=== PATIENT | female | born 1995 | race Caucasian/White ===

== ENCOUNTER 2017-10-08 20:08 | Emergency (ER) | payer BC ==
[~2017-10-08] VITALS: Ht 172.7 cm; Wt 68.0 kg
[~2017-10-08 20:08] MED LIST: ABIL5TAB6 PO
[2017-10-08 20:13] VITALS: BP 103/55; PULSE 82; RESP 16; TEMP 99; O2SAT 98
[2017-10-08] MEDS ORDERED: AZITHROMYCIN 250 MG TAB PO ONE (23:00)
[2017-10-08] MEDS ORDERED: cefTRIAXone 250 MG VIAL IM ONE (23:00)
--- NOTE | 2017-10-08 23:12 | PD ---
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 She said she is having a discharge she says she is worried that she has had a sexually transmitted disease from her partner. He had cultures done and he was positive for GC or chlamydia. She reports she is early is very worried. She reports dischrge no pain no bleeding , no contraction like pain PFSH Past Medical History Immunizations Current: Yes Tetanus Vaccination: Unknown Influenza Vaccination: No ?: Social History Alcohol Use: No Tobacco Use: Yes Substance Use: No Allergies-Medications (Allergen,Severity, Reaction): Coded Allergies: metoclopramide (Verified Allergy, Severe, Anaphylaxis, 10/10/17) lamotrigine (Unverified Allergy, Unknown, 03/31/17) Reported Meds & Prescriptions Reported Meds & Active Scripts Active No Active Prescriptions or Reported Medications Reported Abilify (Aripiprazole) 5 Mg Tab 5 Mg PO DAILY Review of Systems Except as stated in HPI: all other systems reviewed are Neg Physical Exam Narrative GENERAL: [id number] in no obvious distress SKIN: Warm and dry. HEAD: Atraumatic. Normocephalic. EYES: Pupils equal and round. No scleral icterus. No injection or drainage. ENT: No nasal bleeding or discharge. Mucous membranes pink and moist. NECK: Trachea midline. No JVD. CARDIOVASCULAR: Regular rate and rhythm. RESPIRATORY: No accessory muscle use. Clear to auscultation. Breath sounds equal bilaterally. GASTROINTESTINAL: Abdomen soft, non-tender, nondistended. Hepatic and splenic margins not palpable. Pelvic exam patient has a white frothy-like discharge from her cervix MUSCULOSKELETAL: Extremities without clubbing, cyanosis, or edema. No obvious deformities. NEUROLOGICAL: Awake and alert. No obvious cranial nerve deficits. Motor grossly within normal limits. Five out of 5 muscle strength in the arms and legs. Normal speech. PSYCHIATRIC: Appropriate mood and affect; insight and judgment normal. Data Data Last Documented VS Vital Signs Date Time Temp Pulse Resp B/P (MAP) Pulse Ox O2 Delivery O2 Flow Rate FiO2 10/08/17 23:15 10/08/17 20:13 99.0 82 16 98 Orders Orders Wet Prep Profile (10/08/17 22:58) Gc And Chlamydia Pcr (10/08/17 22:58) Ceftriaxone Inj (Rocephin Inj) (10/08/17 23:00) Azithromycin (Zithromax) (10/08/17 23:00) Ed Discharge Order (10/08/17 23:18) Labs Laboratory Tests Test 10/08/17 22:50 Clue Cells (Wet Prep) NONE SEEN Vaginal Trichomonas (Wet Prep) NONE SEEN Vaginal Yeast (Wet Prep) NONE SEEN Chlamydia trachomatis DNA (PCR) NOT DETECTED Neisseria gonorrhoeae DNA (PCR) DETECTED MDM Medical Decision Making Medical Screen Exam Complete: Yes Emergency Medical Condition: Yes Differential Diagnosis STD sexually-transmitted cervicitis versus bacterial vaginosis versus Trichomonas versus GC chlamydia Narrative Course Patient is treated empirically with 250 mg of ceftriaxone IM and a gram of azithromycin p.o. and she will be notified of trichomoniasis or BV or GC chlamydia positive by the laboratory Diagnosis Primary Impression: Possible exposure to STD Patient Instructions: General Instructions, Sexually Transmitted Diseases (ED) Alberto Henao MD Oct 08, 2017 23:12
== END 2017-10-08 23:21 | disposition home or self-care (01) ==
LOC: NEPC 20:08 → MERGE 20:08 → NEPC 23:21
DX: Z20.2 Contact with and (suspected) exposure to infections with a predominantly sexual mode of transmission (principal)
CPT/HCPCS: 87210; 87491; 87591; 96372; 99283; J0696

== ENCOUNTER 2018-02-14 05:29 | Inpatient (IN) ==
[2018-02-14] MEDS ORDERED: Sod Chloride 0.9% Inj 1,000 ML IV.SIG ONE (06:37)
--- NOTE | 2018-02-14 06:42 | ED ---
HPI General Chief Complaint: Abdominal Pain Stated Complaint: v/poss pregnacy related Time Seen by Provider: 02/14/18 06:42 History of Present Illness HPI narrative: 22-year-old female patient with previous history of hyperemesis gravidarum, presents to the ER today with nausea and vomiting since 11:00 last night, vomiting multiple times he cannot keep anything down, abdominal pains, and thinks she may be , states that she does not remember when her last menses was. She denies any fevers, diarrhea, or other symptoms. Related Data Home Medications Medication Instructions Recorded Confirmed No Known Home Medications 02/14/18 02/14/18 Allergies Allergy/AdvReac Type Severity Reaction Status Date / Time metoclopramide Allergy Severe Anaphylaxis Verified 10/08/17 06:42 lamotrigine Allergy Unknown Unverified 03/31/17 23:47 Review of Systems ROS Unobtainable All other systems reviewed negative except as stated in HPI [facility] Medical History Medical History Miscarriage (Acute) Social History Social History Substance History: Active Abuse Second Hand Smoke Exposure: Yes Smoking Status: Current every day smoker Tobacco Type: Cigarettes How Often Do You Have a Drink Containing Alcohol: Never Recent Travel in [place] within the Last 8 Weeks: No Recent Out of Country Travel within the Last 8 Weeks: No Substance Abuse Detail Marijuana: Substance Use Status: Active Route Used Substance Abuse: Inhalation Reason for Use: Feels Good Immunization History Tetanus Immunization: Unsure Hx Influenza Vaccine This Season: Unable to Assess Exam Narrative Exam Narrative: GENERAL: Well-developed thin young female patient currently in moderate distress, vomiting in the ER. Awake and oriented 3. SKIN: Focused skin assessment warm/dry. HEAD: Atraumatic. Normocephalic. EYES: Pupils equal and round. No scleral icterus. No injection or drainage. ENT: No nasal bleeding or discharge. Mucous membranes pink and moist. NECK: Trachea midline. No JVD. CARDIOVASCULAR: Regular rate and rhythm. No murmur appreciated. RESPIRATORY: No accessory muscle use. Clear to auscultation. Breath sounds equal bilaterally. GASTROINTESTINAL: Abdomen soft, diffuse abdominal tenderness without guarding or rebound, nondistended. Hepatic and splenic margins not palpable. MUSCULOSKELETAL: No obvious deformities. No clubbing. No cyanosis. No edema. NEUROLOGICAL: Awake and alert. No obvious cranial nerve deficits. Motor grossly within normal limits. Normal speech. PSYCHIATRIC: Appropriate mood and affect; insight and judgment normal. Course Hospital Course: Case is signed out to oncoming physician awaiting lab workup and reevaluation after given IV fluids and nausea medications. Initial Documented Vital Signs Temperature 98.4 F 02/14/18 05:34 Pulse Rate 56 L 02/14/18 05:34 Respiratory Rate 18 02/14/18 05:34 Blood Pressure 128/72 02/14/18 05:34 Pulse Oximetry 100 02/14/18 05:34 Last Documented Vital Signs Temperature 98.4 F 02/14/18 05:38 Pulse Rate 52 L 02/14/18 05:38 Respiratory Rate 20 02/14/18 05:38 Blood Pressure 129/83 02/14/18 05:38 Pulse Oximetry 100 02/14/18 05:38 Medical Decision Making Lab Data Result diagrams: 02/14/18 06:30 02/14/18 06:30 Lab Results 02/14/18 Range/Units 06:30 WBC 12.1 H (4.0-11.0) th/mm3 RBC 4.49 (4.00-5.30) mil/mm3 Hgb 14.1 (11.6-15.3) gm/dL Hct 41.2 (35.0-46.0) % MCV 91.7 (80.0-100.0) fL MCH 31.3 (27.0-34.0) pg MCHC 34.1 (32.0-36.0) % RDW 12.8 (11.6-17.2) % Plt Count 222 (150-450) th/mm3 MPV 8.0 (7.0-11.0) fL Neut % (Auto) 72.9 H (16.0-70.0) % Lymph % (Auto) 21.0 (9.0-44.0) % [place] % (Auto) 5.3 (0.0-8.0) % Eos % (Auto) 0.4 (0.0-4.0) % Baso % (Auto) 0.4 (0.0-2.0) % Neut # (Auto) 8.8 H (1.8-7.7) th/mm3 Lymph # (Auto) 2.5 (1.0-4.8) th/mm3 [place] # (Auto) 0.6 (0.0-0.9) th/mm3 Eos # (Auto) 0.0 (0.0-0.4) th/mm3 Baso # (Auto) 0.0 (0.0-0.2) th/mm3 WBC Differential . Differential Comment Auto diff final Discharge Plan Discharge Disposition Patient Disposition: 30 Still Patient Physicians Team ED Provider: Kenya Mohr Primary Care Provider: Mike Thompson Rxs /Orders / Referrals /Forms Prescriptions: No Action No Known Home Medications RF: 0 Discharge Interventions Interventions: Vital Signs Last Done: 02/14/18 05:38 Status ED Status: With Doctor
[2018-02-14 07:02] LABS: Baso % (Auto) 0.4 % (0.0-2.0); Eos % (Auto) 0.4 % (0.0-4.0); Hematocrit 41.2 % (35.0-46.0); Hemoglobin 14.1 gm/dL (11.6-15.3); Lymph # (Auto) 2.5 th/mm3 (1.0-4.8); Mean Corpuscular HGB Conc 34.1 % (32.0-36.0); Mean Corpuscular Hemoglobin 31.3 pg (27.0-34.0); Mean Corpuscular Volume 91.7 fL (80.0-100.0); Mono # (Auto) 0.6 th/mm3 (0.0-0.9); Mono % (Auto) 5.3 % (0.0-8.0); Neut # (Auto) 8.8 th/mm3 (1.8-7.7); Neut % (Auto) 72.9 % (16.0-70.0); Platelet Count 222 th/mm3 (150-450); Red Blood Count 4.49 mil/mm3 (4.00-5.30); Red Cell Distribution Width 12.8 % (11.6-17.2); White Blood Count 12.1 th/mm3 (4.0-11.0)
[2018-02-14 07:24] LABS: Alanine Aminotransferase 17 U/L (10-53); Albumin 3.9 g/dL (3.4-5.0); Anion Gap 11 meq/L (5-15); Aspartate Aminotransferase 11 U/L (15-37); Blood Urea Nitrogen 9 mg/dL (7-18); Calcium 8.7 mg/dL (8.5-10.1); Carbon Dioxide 22.5 meq/L (21.0-32.0); Chloride 106 meq/L (98-107); Glomerular Filtration Rate Greater Than 89 mL/min (>89); Glucose,Random 100 mg/dL (74-106); Lipase 121 U/L (73-393); Potassium 3.8 meq/L (3.5-5.1); Sodium 139 meq/L (136-145)
[2018-02-14 07:26] LABS: Alkaline Phosphatase 52 U/L (45-117); Total Protein 7.1 g/dL (6.4-8.2)
[2018-02-14 09:31] LABS: Bacteria,Urine Rare /hpf; Bilirubin,Urine Negative (Negative); Clarity,Urine Cloudy (Clear); Color,Urine Yellow (Yellw/Straw); Glucose,Urine (UA) Negative (Negative); Leukocyte Esterase,Urine Negative (Negative); Mucus,Urine Many /lpf (Occasional); Nitrite,Urine Negative (Negative); Specific Gravity,Urine 1.019 (1.002-1.035); Squamous Epithelial Cell,Urine 22 /hpf (0-5)
[2018-02-14] MEDS ORDERED: Sod Chloride 0.9% Inj 2,000 ML IV.SIG ONE (10:31)
[2018-02-14] MEDS ORDERED: Acetaminophen 325 MG Tablet PO PRN (11:14)
[2018-02-14] MEDS ORDERED: Bisacodyl 10 MG Supp RECTAL PRN (11:14)
--- NOTE | 2018-02-14 13:41 | P.HPIM ---
History of Present Illness Primary Care Physician: Mike Thompson MD History of Present Illness: 22-year-old female came to the emergency room with history of vomiting. Patient says that the vomiting started last night and it has been nonstop. She has been very nauseous. She was tested positive for . Beta-hCG is high correlating with . She has minimal spotting but no pain. Patient was given IV fluid bolus and p.o. Zofran in the ED with no much improvement. She is allergic to Reglan. Received 2 liter of IV fluid bolus. Patient can't keep down anything. - Inpatient Certification If this patient has been admitted as an Inpatient: I certify that the inpatient services were ordered in accordance with Medicare regulations governing the order. This includes certification that hospital inpatient services are reasonable and necessary and in the case of services not specified as inpatient-only under 42 CFR 419.22(n), that they are appropriately provided as inpatient services in accordance to with the 2-midnight benchmark under 43 CFR 412.3(e) Review of Systems ROS reviewed and negative except as mentioned in the [facility] PMFSH - History History Provided By: Patient - Medical History Medical History: Medical History (Last Reviewed 02/14/18 @ 13:41 by Ivone Meneses MD) Miscarriage - Tobacco History Second Hand Smoke Exposure: Yes Tobacco Use In Past 30 Days: Yes Smoking Status: Current every day smoker Tobacco Type: Cigarettes (1 ppd ) - Alcohol History How Often Do You Have a Drink Containing Alcohol: Never - Substance Use History Substance History: Active Abuse - Substance Use Type Marijuana Status: Active Route Used: Inhalation Reason for Use: Feels Good - Travel History Recent Travel in the [place] Within the Last 8 Weeks: No Recent Travel Out of the Country Within the Last 8 Weeks: No - Immunization History Tetanus Immunization: Unsure Hx Influenza Vaccine This Season: Unable to Assess Medications and Allergies Active Medications: Active Medications Acetaminophen (Tylenol) 650 mg PO Q4H PRN PRN Reason: Temp > 100.4 Al Hydroxide/Mg Hydroxide (Milk Of Magnesia Liq) 30 ml PO Q12H PRN PRN Reason: Mild Constipation Bisacodyl (Dulcolax Supp) 10 mg RECTAL DAILY PRN PRN Reason: SEVERE CONSITIPATION Sodium Chloride (Ns Inj) 1,000 mls @ 100 mls/hr IV.CONT .Q10H RENEA Lactulose (Lactulose Liq) 30 ml PO DAILY PRN PRN Reason: SEVERE CONSITIPATION Ondansetron HCl (Zofran Odt) 4 mg PO Q6H PRN PRN Reason: NAUSEA OR VOMITING Pyridoxine HCl (Vitamin B6 Inj) 20 mg IM DAILY RENEA Senna/Docusate Sodium (Nayeli-Colace) 1 tab PO BID RENEA Sennosides (Senokot) 17.2 mg PO Q12H PRN PRN Reason: Moderate Constipation Sodium Chloride (Ns Flush) 2 ml IV.FLUSH PRN PRN PRN Reason: FLUSH AFTER USING IV ACCESS Allergies Allergy/AdvReac Type Severity Reaction Status Date / Time metoclopramide Allergy Severe Anaphylaxis Verified 02/14/18 11:56 lamotrigine Allergy Unknown Anaphylaxis Verified 02/14/18 13:01 Home Medications Medication Instructions Recorded Confirmed Type No Known Home Medications 02/14/18 02/14/18 History Exam Vital signs: Vital Signs 02/14/18 05:34 02/14/18 05:38 02/14/18 09:38 Temperature 98.4 F 98.4 F Pulse Rate 56 L 52 L 50 L Respiratory Rate 18 20 20 Blood Pressure 128/72 129/83 124/77 Pulse Oximetry 100 100 100 Intake & Output 02/13/18 02/14/18 02/14/18 18:59 06:59 18:59 Intake Total 1000 / 1000 Balance 1000 / 1000 Weight 48.534 kg Intake: IV 1000 / 1000 Narrative: GENERAL: This is a very pleasant young 22-year-old female appears in some distress due to nausea and vomiting, well-nourished, well-developed patient in no apparent distress. SKIN: Warm and dry. HEAD: Atraumatic. Normocephalic. EYES: Pupils equal and round. No scleral icterus. No injection or drainage. ENT: No nasal bleeding or discharge. Mucous membranes pink and moist. NECK: Trachea midline. No JVD. CARDIOVASCULAR: Regular rate and rhythm. RESPIRATORY: No accessory muscle use. Clear to auscultation. Breath sounds equal bilaterally. GASTROINTESTINAL: Abdomen soft, mild tenderness diffuse, nondistended. Hepatic and splenic margins not palpable. MUSCULOSKELETAL: Extremities without clubbing, cyanosis, or edema. No obvious deformities. NEUROLOGICAL: Awake and alert. No obvious cranial nerve deficits. Motor grossly within normal limits. Five out of 5 muscle strength in the arms and legs. Normal speech. PSYCHIATRIC: Appropriate mood and affect; insight and judgment normal. Results - Labs CBC & Chem 7: 02/14/18 06:30 02/14/18 06:30 Labs: Short CBC 02/14/18 Range/Units 06:30 WBC 12.1 H (4.0-11.0) th/mm3 Hgb 14.1 (11.6-15.3) gm/dL Hct 41.2 (35.0-46.0) % Plt Count 222 (150-450) th/mm3 BMP 02/14/18 06:30 Sodium 139 Potassium 3.8 Chloride 106 Carbon Dioxide 22.5 BUN 9 Creatinine 0.64 Calcium 8.7 Liver Function 02/14/18 Range/Units 06:30 Total Bilirubin 0.9 (0.2-1.0) mg/dL AST 11 L (15-37) U/L ALT 17 (10-53) U/L Alkaline Phosphatase 52 (45-117) U/L Albumin 3.9 (3.4-5.0) g/dL Urine 02/14/18 Range/Units 08:30 Urine Color Yellow (Yellw/Straw) Urine Clarity Cloudy H (Clear) Urine pH 6.0 (5.0-8.5) Ur Specific [place] 1.019 (1.002-1.035) Urine Protein Negative (Neg-Trace) mg/dL Urine Glucose (UA) Negative (Negative) mg/dL Caprini VTE Risk Assessment Caprini VTE Risk Assessment: No/Low Risk (score <= 1) Caprini Risk Assessment Model: Point Value = 1 Point Value = 2 Point Value = 3 Point Value = 5 Age 41-60 Minor surgery BMI > 25 kg/m2 Swollen legs Varicose veins or History of unexplained or recurrent spontaneous Oral contraceptives or hormone replacement Sepsis (< 1 month) Serious lung disease, including pneumonia (< 1 month) Abnormal pulmonary function Acute myocardial infarction Congestive heart failure (< 1 month) History of inflammatory bowel disease Medical patient at bed rest Age 61-74 Arthroscopic surgery Major open surgery (> 45 min) Laparoscopic surgery (> 45 min) Malignancy Confined to bed (> 72 hours) Immobilizing plaster cast Central venous access Age >= 75 History of VTE Family history of VTE Factor V Leiden Prothrombin [id number] Lupus anticoagulant Anticardiolipin antibodies Elevated serum homocysteine Heparin-induced thrombocytopenia Other congenital or acquired thrombophilia Stroke (< 1 month) Elective arthroplasty Hip, pelvis, or leg fracture Acute spinal cord injury (< 1 month) Prophylaxis Regimen: Total Risk Factor Score Risk Level Prophylaxis Regimen 0-1 Low Early ambulation 2 Moderate Order ONE of the following: *Sequential Compression Device (SCD) *Heparin 5000 units SQ BID 3-4 Higher Order ONE of the following medications: *Heparin 5000 units SQ TID *Enoxaparin/Lovenox 40 mg SQ daily (WT < 150 kg, CrCl > 30 mL/min) *Enoxaparin/Lovenox 30 mg SQ daily (WT < 150 kg, CrCl > 10-29 mL/min) *Enoxaparin/Lovenox 30 mg SQ BID (WT < 150 kg, CrCl > 30 mL/min) AND/OR *Sequential Compression Device (SCD) 5 or more Highest Order ONE of the following medications: *Heparin 5000 units SQ TID (Preferred with Epidurals) *Enoxaparin/Lovenox 40 mg SQ daily (WT < 150 kg, CrCl > 30 mL/min) *Enoxaparin/Lovenox 30 mg SQ daily (WT < 150 kg, CrCl > 10-29 mL/min) *Enoxaparin/Lovenox 30 mg SQ BID (WT < 150 kg, CrCl > 30 mL/min) AND *Sequential Compression Device (SCD) Assessment and Plan - Plan 22-year-old female patient with previous history of hyperemesis gravidarum, presents to the ER today with nausea and vomiting since 11:00 last night, vomiting multiple times he cannot keep anything down, abdominal pains, and thinks she may be , states that she does not remember when her last menses was. She denies any fevers, diarrhea, or other symptoms. Hyperemesis gravidarum Patient presented with intractable nausea vomiting and not able to keep down any food received 2 L bolus of normal saline in the emergency room and Zofran without much improvement Labs reviewed and fairly normal monitor BMP Monitor vital signs Continue IV fluids normal saline at 100 cc/h Antiemetics Zofran as needed she is allergic to Reglan B6 IM injection might help with vomiting and nausea in We will hold vitamin p.o. at this time as patient with severe nausea vomiting Consult regarding tobacco use Discharge tomorrow if able to tolerate food to follow-up with PCP and with GIVER as outpatient DVT prophylaxis ambulation
[2018-02-14] MEDS: Sod Chloride 0.9% Inj 1,000 ML IV.CONT SCH ×2 (13:43→22:51)
[2018-02-15] MEDS: Senna/Docusate Sodium 8.6/50 MG Tablet PO SCH ×2 (00:33→10:06)
[2018-02-15 04:46] LABS: Baso % (Auto) 0.1 % (0.0-2.0); Hematocrit 38.7 % (35.0-46.0); Hemoglobin 13.1 gm/dL (11.6-15.3); Lymph % (Auto) 8.6 % (9.0-44.0); Mean Corpuscular HGB Conc 33.8 % (32.0-36.0); Mean Corpuscular Volume 91.6 fL (80.0-100.0); Mean Platelet Volume 8.4 fL (7.0-11.0); Mono # (Auto) 1.5 th/mm3 (0.0-0.9); Mono % (Auto) 6.7 % (0.0-8.0); Neut # (Auto) 19.6 th/mm3 (1.8-7.7); Neut % (Auto) 84.6 % (16.0-70.0); Platelet Count 199 th/mm3 (150-450); Red Blood Count 4.22 mil/mm3 (4.00-5.30); Red Cell Distribution Width 12.6 % (11.6-17.2); White Blood Count 23.2 th/mm3 (4.0-11.0)
[2018-02-15 05:11] LABS: Alanine Aminotransferase 22 U/L (10-53); Albumin 3.5 g/dL (3.4-5.0); Anion Gap 13 meq/L (5-15); Aspartate Aminotransferase 29 U/L (15-37); Blood Urea Nitrogen 10 mg/dL (7-18); Calcium 8.3 mg/dL (8.5-10.1); Chloride 107 meq/L (98-107); Glomerular Filtration Rate Greater Than 89 mL/min (>89); Glucose,Random 106 mg/dL (74-106); Potassium 3.4 meq/L (3.5-5.1); Sodium 140 meq/L (136-145)
[2018-02-15 05:25] LABS: Alkaline Phosphatase 46 U/L (45-117); Total Protein 6.4 g/dL (6.4-8.2)
[2018-02-15] MEDS: Sod Chloride 0.9% Inj 1,000 ML IV.CONT SCH (10:07)
--- NOTE | 2018-02-15 11:19 | US ---
EXAM DATE: 02/15/2018 11:10 AM EDT AGE/SEX: 22 years / Female INDICATIONS: Vaginal bleeding. CLINICAL DATA: This is the patient's initial encounter. Patient reports that signs and symptoms have been present for 2 months and indicates a pain score of 0/10. MEDICAL/SURGICAL HISTORY: . Miscarriage. Tobacco use. . COMPARISON: No prior exams available for comparison. TECHNIQUE: Real-time ultrasound of the pelvis was performed using an endovaginal transducer. BHC,548 MEASUREMENTS: Uterus:__9.4 x 8.4 x 7.7 cm Endometrial Stripe:__>20 mm Right Ovary:__ 3.1 x 3.2 x 2.2 cm Left Ovary:__ n/a Not visualized. FINDINGS: Uterus: Intrauterine with positive heart tones 196 bpm. Positive yolk sac. There bean s appear to be a septation within the gestational sac. Right Ovary: Small complex cysts measuring 19 x 18 x 12 mm and 14 x 13 x 10 mm. Left Ovary: Not visualized. Other: Between addition to the previous measurement CONCLUSION: 1. Intrauterine estimated at 7 weeks 4 days. 2. There is slight irregularity of the gestational sac with septation. Close interval follow-up pamella mmended. 3. Complex cyst right ovary. 4. Nonvisualization left ovary. Electronically signed by: Aaron Richardson MD 02/15/2018 11:18 AM EDT
--- NOTE | 2018-02-15 11:25 | P.PN ---
Subjective Interval history: Patient was seen earlier this morning. She states that her nausea seems to have improved a little bit however she is afraid to eat anything because she does not want to start the cycle again. She feels tired. She also tells me that she noted some spotting this morning when she wiped herself. Denies any cramping or pain. She tells me that she had a miscarriage in December and was seen at the time by Dr. Boothe. Pt states that she doesn't follow w an OBGYN on a regular basis. She tells me that she is scared. Physical Exam Vital signs: Vital Signs 02/14/18 13:00 02/14/18 14:51 02/14/18 16:00 Temperature 97.7 F 98.7 F Pulse Rate 57 L 63 53 L Respiratory Rate 18 24 22 Blood Pressure 114/62 115/69 125/64 Pulse Oximetry 98 100 99 02/14/18 23:48 02/15/18 05:42 02/15/18 09:00 Temperature 98.9 F 98.4 F 97.7 F Pulse Rate 48 L 66 49 L Respiratory Rate 18 16 20 Blood Pressure 121/66 106/54 L 113/72 Pulse Oximetry 100 98 100 Intake & Output 02/14/18 02/15/18 02/15/18 18:59 06:59 18:59 Intake Total 2387 / 2387 1000 / 1000 1000 / 1000 Balance 2387 / 2387 1000 / 1000 1000 / 1000 Intake: IV 2000 / 2000 1000 / 1000 1000 / 1000 NS Inj 1,000 ML @ 100 mls/hr IV 1000 / 1000 1000 / 1000 .CONT .Q10H RENEA Rx#:[id number] NS Inj 2,000 ML @ Wide Open IV. 1000 / 1000 SIG BOLUS ONE Rx#:[id number] Other 387 / 387 Other: Other Intake Source Saline Solution Date of Last Bowel Movement 02/14/18 Narrative: Patient was sitting up on her bed trying to get out of bed to use the restroom Lungs were clear to auscultation with no wheezing Heart rate was regular with no murmur Abdomen was soft but w some discomfort with deep palpation in the right and left lower quadrants however patient states is from all the vomiting She moves all extremities with no difficulties. Results - Labs CBC & Chem 7: 02/15/18 03:44 02/15/18 03:44 Laboratory Results - last 24 hr 02/15/18 02/15/18 03:44 03:44 WBC 23.2 H D RBC 4.22 Hgb 13.1 Hct 38.7 MCV 91.6 MCH 31.0 MCHC 33.8 RDW 12.6 Plt Count 199 MPV 8.4 Neut % (Auto) 84.6 H Lymph % (Auto) 8.6 L Coleman % (Auto) 6.7 Eos % (Auto) 0.0 Baso % (Auto) 0.1 Neut # (Auto) 19.6 H Lymph # (Auto) 2.0 Coleman # (Auto) 1.5 H Eos # (Auto) 0.0 Baso # (Auto) 0.0 WBC Differential . Differential Comment Auto diff final Sodium 140 Potassium 3.4 L Chloride 107 Carbon Dioxide 20.0 L Anion Gap 13 BUN 10 Creatinine 0.49 L Estimated GFR Greater than 89 Random Glucose 106 Calcium 8.3 L Total Bilirubin 1.0 AST 29 ALT 22 Alkaline Phosphatase 46 Total Protein 6.4 D Albumin 3.5 Assessment and Plan - Plan 22-year-old female patient with previous history of hyperemesis gravidarum, presents to the ER with nausea and vomiting unable to keep anything down, abdominal pains. She denied any fevers, diarrhea, or other symptoms. Hyperemesis gravidarum continue IV hydration. WBC found to be 23.2 today. Could be from dehydration. Pt has been afebrile. She denies any pain anywhere. when I saw her, vomiting had stopped. Monitor vital signs Continue IV fluids normal saline at 100 cc/h she is on B6 and Tigan inject for n/v. I have added phenergan as RN just notified me that pt is now again feeling very nauseous. Unfortunately our pharmacy doesn't carry doxylamine. I have ordered a transvaginal u/s to see to see if we can date the . OB consult has been placed to assist w hyperemesis gravidarum and spotting vitamin p.o. were held at this time as patient with severe nausea vomiting. Will give IV. counseled regarding tobacco use anticipate d/c in 1-2 days if able to tolerate food to follow-up with PCP and with [facility] as outpatient Repeat CBC in AM as pt's WBC were elevated for unknown reason. Monitor for fevers. DVT prophylaxis ambulation Progress Note: Quality - VTE Deep Vein Thrombosis/Pulmonary Embolism Present on Admission: No
[2018-02-15] MEDS ORDERED: Multivitamin Inj 10 ML, Folic Acid Inj 1 MG in Sodium Chlor 0.9% Inj 500 ML IV.SIG SCH (13:00)
== END 2018-02-15 16:53 | disposition left against medical advice (07) ==
LOC: NEPE 05:29 → NEDA 11:26 → NEPFCDU 14:00
PROVIDERS: ADMIT Hospitalist; ATTEND Hospitalist